=== PATIENT | male | born 1995 | race African-American/Black ===

== ENCOUNTER 2016-10-06 12:20 | Emergency (ER) | payer OTHER ==
[2016-10-06 12:46] LABS: INFLUENZA A POS (NEG); INFLUENZA B NEG (NEG)
== END 2016-10-06 12:58 | disposition home or self-care (01) ==
LOC: CFTX 12:20
PROVIDERS: Physician Assistant
DX: J10.1 Influenza due to other identified influenza virus with other respiratory manifestations (principal); F17.210 Nicotine dependence, cigarettes, uncomplicated
CPT/HCPCS: 87804; 99282